=== PATIENT | male | born 1995 | race Hispanic/Latino ===

== ENCOUNTER 2018-04-18 15:08 | Emergency (ER) | payer SELFPAY ==
[2018-04-18] MEDS ORDERED: NA CHLORIDE 0.9% 1,000 ML ONE ×3 (15:42→19:41)
[2018-04-18] MEDS ORDERED: ONDANSETRON 4 MG/2 ML VIAL ONE ×2 (15:42→19:41)
[2018-04-18] MEDS ORDERED: FAMOTIDINE 20 MG/2 ML VIAL IV ONE (15:43)
[2018-04-18 15:51] LABS: Absolute Lymphocytes (CBC) 0.8 K/uL (0.7-4.9); Absolute Monocytes 0.8 K/uL (0.1-1.3); Absolute Neutrophil 11.3 K/uL (1.8-8.0); Basophils % 0.3 % (0-1.3); Eosinophils % 0.1 % (0-4.4); Hematocrit 48.7 % (39.6-49.0); Lymphocytes % 6.3 % (15.3-44.8); MCH 29.2 pg (27.0-35.0); MCV 88.4 fL (80-100); Monocytes % 6.4 % (3.3-12.3); RBC Red Blood Cell Count 5.51 M/uL (4.33-5.43)
[2018-04-18 16:08] LABS: Albumin 3.8 g/dL (3.4-5.0); Bilirubin Direct 0.1 mg/dL (0-0.2); Bilirubin Total 0.4 mg/dL (0.2-1.0); Potassium 3.7 mmol/L (3.5-5.1); Protein, Total 8.5 g/dL (6.4-8.2)
[2018-04-18] MEDS ORDERED: PROMETHAZINE 25 MG/ML VIAL ONE (16:23)
[2018-04-18 16:43] LABS: Urine Blood NEGATIVE (NEG); Urine Glucose NEGATIVE (NEG); Urine Protein 1+ (NEG); Urine Specific Gravity >1.030 (1.005-1.030); Urine pH 5.5 (5.0-7.0)
[2018-04-18 16:43] LABS: Urine Amorphous Sediment 4+ /HPF (NONE SEEN); Urine Bacteria <20 /HPF (NONE SEEN); Urine Culture Reflex Order NOT NEEDED; Urine Mucus 2+ /HPF (NONE SEEN); Urine RBC <5 /HPF (NONE SEEN)
--- NOTE | 2018-04-18 20:19 | EDPHYS ---
Physician Documentation [facility] Name: Manny York Jr Age: 22 yrs Sex: Male : 1995 Arrival Date: 04/18/2018 Time: 15:13 Bed 27 Private MD: None, None ED Physician Daniel Sloan HPI: 04/18 15:38 This 22 yrs old Male presents to ER via Ambulatory with complaints of cp Nausea/Vomiting/Diarrhea. 15:38 The patient presents to the emergency department with nausea, with "dry heaves", cp vomiting, that is continuous, diarrhea, that is continuous, abdominal pain, of the abdomen diffusely. 15:38 Onset: The symptoms/episode began/occurred this morning. Possible causes: bad food cp exposure. Associated signs and symptoms: Pertinent negatives: constipation, fever, GI bleeding. Severity of symptoms: in the emergency department the symptoms are unchanged despite home interventions. Patient reports multiple family members with similar symptoms. Historical: - Allergies: 15:34 No Known Allergies; lk1 - PMHx: 15:34 None; lk1 - PSHx: 15:34 left arm; lk1 - Immunization history:: Adult Immunizations up to date. - Social history:: Smoking status: Patient/guardian denies using tobacco. - Ebola Screening: : Patient negative for fever greater than or equal to 101.5 degrees Fahrenheit, and additional compatible Ebola Virus Disease symptoms Patient denies exposure to infectious person Patient denies travel to an Ebola-affected area in the 21 days before illness onset No symptoms or risks identified at this time. ROS: 15:45 Constitutional: Negative for body aches, chills, fever, poor PO intake. cp 15:45 Eyes: Negative for injury, pain, redness, and discharge. cp 15:45 ENT: Negative for drainage from ear(s), ear pain, sore throat, difficulty swallowing, difficulty handling secretions. 15:45 Cardiovascular: Negative for chest pain. 15:45 Respiratory: Negative for cough, shortness of breath, wheezing. 15:45 Abdomen/GI: Positive for nausea, vomiting, and diarrhea, Negative for hematemesis, black/tarry stool, rectal bleeding. 15:45 Back: Negative for pain at rest, pain with movement, radiated pain. 15:45 : Negative for urinary symptoms. 15:45 Skin: Negative for cellulitis, rash. 15:45 Neuro: Negative for altered mental status, dizziness, headache, weakness. 15:45 All other systems are negative. Exam: 15:49 Constitutional: The patient appears in no acute distress, alert, awake, non-toxic, well cp developed, well nourished. 15:49 Head/Face: Normocephalic, atraumatic. cp 15:49 Eyes: Periorbital structures: appear normal, Conjunctiva: normal, no exudate, no injection, Sclera: no appreciated abnormality, Lids and lashes: appear normal, bilaterally. 15:49 ENT: External ear(s): are unremarkable, Nose: is normal, Mouth: Lips: moist, Oral mucosa: moist, Posterior pharynx: is normal, airway is patent, no erythema, no exudate. 15:49 Neck: ROM/movement: is normal, is supple, without pain, no range of motions limitations, no meningismus, no nuchal rigidity. 15:49 Chest/axilla: Inspection: normal, Palpation: is normal, no crepitus, no tenderness. 15:49 Cardiovascular: Rate: tachycardic, Rhythm: regular. 15:49 Respiratory: the patient does not display signs of respiratory distress, Respirations: normal, no use of accessory muscles, no retractions, no splinting, no tachypnea, labored breathing, is not present, Breath sounds: are clear throughout, no decreased breath sounds, no stridor, no wheezing. 15:49 Abdomen/GI: Inspection: obese Bowel sounds: active, all quadrants, Palpation: soft, in all quadrants, mild abdominal tenderness, in the epigastric area, rebound tenderness, is not appreciated, voluntary guarding, is not appreciated, involuntary guarding, is not appreciated. 15:49 Back: pain, is absent, ROM is normal. 15:49 Skin: cellulitis, is not appreciated, no rash present. Vital Signs: 15:34 BP 137 / 95; Pulse 138; Resp 18; Temp 98.2(TE); Pulse Ox 95% on R/A; Weight 113.4 kg lk1 (R); Height 5 ft. 6 in. (167.64 cm) (R); Pain 10/10; 17:17 BP 140 / 94; Pulse 116; Resp 18; Pulse Ox 99% on R/A; mb3 20:58 BP 118 / 84; Pulse 64; Resp 16; Pulse Ox 100% on R/A; mb3 15:34 Body Mass Index 40.35 (113.40 kg, 167.64 cm) lk1 MDM: 15:32 Patient medically screened. cp 20:17 Data reviewed: vital signs, nurses notes, lab test result(s). cp 20:17 Counseling: I had a detailed discussion with the patient and/or guardian regarding: the cp historical points, exam findings, and any diagnostic results supporting the discharge/admit diagnosis, lab results, to return to the emergency department if symptoms worsen or persist or if there are any questions or concerns that arise at home. Special discussion: Based on the patient's Hx, exam, and Dx evaluation, there is no indication for emergent surgery or inpatient Tx. It is understood by the patient/guardian that if the Sx's persist or worsen they need to return immediately for re-evaluation. 04/18 15:38 Order name: Amylase, Serum; Complete Time: 16:21 cp 04/18 15:38 Order name: Basic Metabolic Panel; Complete Time: 16:21 cp 04/18 16:21 Interpretation: Normal except: GLUC 123; GFR 74. cp 04/18 15:38 Order name: CBC with Diff; Complete Time: 16:21 cp 04/18 16:21 Interpretation: Normal except: WBC 13.0; RBC 5.51; NICK% 86.9; LYM% 6.3; NEUT A 11.3. cp 04/18 15:38 Order name: Creatinine for Radiology; Complete Time: 16:21 cp 04/18 15:38 Order name: Hepatic Function; Complete Time: 16:21 cp 04/18 16:21 Interpretation: Normal except: TP 8.5; GLOB 4.7; A/G 0.8. cp 04/18 15:38 Order name: Lipase; Complete Time: 16:21 cp 04/18 15:38 Order name: Urine Microscopic Only; Complete Time: 16:50 cp 04/18 16:50 Interpretation: Normal except: AMORPH 4+. cp 04/18 16:31 Order name: Urine Dipstick--Ancillary (enter results); Complete Time: 16:50 ag 04/18 16:50 Interpretation: Normal except: USPGR >1.030; UPROT 1+. cp 06/28 15:38 Order name: IV Saline Lock; Complete Time: 15:50 cp 04/18 15:38 Order name: Labs collected and sent; Complete Time: 15:50 cp 04/18 15:38 Order name: Urine Dipstick-Ancillary (obtain specimen); Complete Time: 16:26 cp 04/18 17:34 Order name: PO challenge; Complete Time: 19:21 cp Administered Medications: 15:55 Drug: NS 0.9% 1000 ml Route: IV; Rate: 1 bolus; Site: right antecubital; mb3 21:01 Follow up: Response: No adverse reaction; IV Status: Completed infusion; IV Intake: mb3 1000ml 15:55 Drug: Zofran 4 mg Route: IVP; Site: right antecubital; mb3 21:01 Follow up: Response: No adverse reaction mb3 15:55 Drug: Pepcid 20 mg Route: IVP; Site: right antecubital; mb3 21:02 Follow up: Response: No adverse reaction mb3 16:20 Drug: Phenergan 25 mg Route: IVP; Site: right antecubital; mb3 21:02 Follow up: Response: No adverse reaction mb3 16:59 Drug: NS 0.9% 1000 ml Route: IV; Rate: 1 bolus; Site: right antecubital; mb3 21:02 Follow up: Response: No adverse reaction; IV Status: Completed infusion; IV Intake: mb3 1000ml 19:40 Drug: NS 0.9% 1000 ml Route: IV; Rate: 125 ml/hr; Site: right antecubital; mb3 21:03 Follow up: Response: No adverse reaction; IV Status: Completed infusion; IV Intake: mb3 150ml 19:40 Drug: Zofran 4 mg Route: IVP; Site: right antecubital; mb3 21:03 Follow up: Response: No adverse reaction mb3 Disposition: 04/18/18 20:19 Discharged to Home. Impression: Nausea and vomiting, Diarrhea, unspecified. - Condition is Stable. - Discharge Instructions: Food Choices to Help Relieve Diarrhea, Adult, Diarrhea, Clear Liquid Diet, Nausea and Vomiting. - Prescriptions for Bentyl 20 mg Oral Tablet - take 1 tablet by ORAL route every 6 hours As needed; 30 tablet. Pepcid 20 mg Oral Tablet - take 1 tablet by ORAL route every 12 hours for 10 days; 20 tablet. promethazine 25 mg Oral Tablet - take 1 tablet by ORAL route every 6 hours As needed; 20 tablet. - Medication Reconciliation Form, Thank You Letter, Antibiotic Education, Prescription Opioid Use form. - Follow up: Private Physician; When: 1 - 2 days; Reason: Recheck today's complaints. - Problem is new. - Symptoms have improved. Addendum: 04/25/2018 11:29 Co-signature as Attending Physician, Daniel Sloan MD I agree with the assessment and k plan of care. Signatures: Dispatcher [employer] EDMA Daniel Sloan MD MD kdr Quinn Toure PA PA cp Lida Velasquez RN RN lk1 Delio Otoole RN RN mb3 Corrections: (The following items were deleted from the chart) 04/18 21:04 20:19 04/18/2018 20:19 Discharged to Home. Impression: Nausea and vomiting; Diarrhea, mb3 unspecified. Condition is Stable. Forms are Medication Reconciliation Form, Thank You Letter, Antibiotic Education, Prescription Opioid Use. Follow up: Private Physician; When: 1 - 2 days; Reason: Recheck today's complaints. Problem is new. Symptoms have improved. cp 04/19 06:16 04/17 15:48 Constitutional: The patient appears in no acute distress, alert, awake, cp non-toxic, well developed, well nourished, cp 04/19 06:04/17 15:48 Head/Face: Normocephalic, atraumatic. cp cp 04/19 06:04/17 15:48 Eyes: Periorbital structures: appear normal, Pupils: equal, round, and cp reactive to light and accomodation, Extraocular movements: intact throughout, Conjunctiva: normal, no exudate, no injection, Sclera: no appreciated abnormality, Lids and lashes: appear normal, bilaterally, cp 04/19 06:04/17 15:48 ENT: External ear(s): are unremarkable, Nose: is normal, Mouth: Lips: cp moist, Oral mucosa: pink and intact, moist, Posterior pharynx: is normal, airway is patent, no erythema, no exudate, cp 04/19 06:04/17 15:48 Neck: ROM/movement: is normal, is supple, without pain, no range of motions cp limitations, no meningismus, no nuchal rigidity, cp 04/19 06:04/17 15:48 Chest/axilla: Inspection: normal, Palpation: is normal, no crepitus, no cp tenderness, cp 04/19 06:04/17 15:48 Cardiovascular: Rate: tachycardic, Rhythm: regular, Edema: is not cp appreciated, JVD: is not appreciated, cp 04/19 06:04/17 15:48 Respiratory: the patient does not display signs of respiratory distress, cp Respirations: normal, no use of accessory muscles, no retractions, no splinting, no tachypnea, Breath sounds: are clear throughout, no decreased breath sounds, no stridor, no wheezing, cp 04/19 06:04/17 15:48 Abdomen/GI: Inspection: obese Bowel sounds: active, all quadrants, cp Palpation: soft, in all quadrants, mild abdominal tenderness, in all quadrants, rebound tenderness, is not appreciated, voluntary guarding, is not appreciated, involuntary guarding, is not appreciated, cp 04/19 06:04/17 15:48 Skin: cellulitis, is not appreciated, no rash present. cp cp 04/19 06:04/17 15:48 Back: pain, is absent, ROM is normal, cp cp 04/19 06:04/17 15:48 Neuro: Orientation: to person, place \\T\\ time. Mentation: is normal, cp Cerebellar function: is grossly normal, Motor: moves all fours, strength is normal, Sensation: no obvious gross deficits, cp
--- NOTE | 2018-04-18 20:19 | ER ---
Nurse's Notes [facility] Name: Manny York Jr Age: 22 yrs Sex: Male : 1995 Arrival Date: 04/18/2018 Time: 15:13 Bed 27 Private MD: None, None Diagnosis: Nausea and vomiting;Diarrhea, unspecified Presentation: 04/18 15:33 Presenting complaint: Patient states: "My whole family was sick yesterday with vomiting lk1 and diarrhea. Today I have it.". Transition of care: patient was not received from another setting of care. Onset of symptoms was April 18, 2018 at 09:00. Risk Assessment: Do you want to hurt yourself or someone else? Patient reports no desire to harm self or others. Initial Sepsis Screen: Does the patient meet any 2 criteria? HR > 90 bpm. Does the patient have a suspected source of infection? No. Patient's initial sepsis screen is negative. Care prior to arrival: None. 15:33 Method Of Arrival: Ambulatory lk1 15:33 Acuity: JARON 3 lk1 Historical: - Allergies: 15:34 No Known Allergies; lk1 - PMHx: 15:34 None; lk1 - PSHx: 15:34 left arm; lk1 - Immunization history:: Adult Immunizations up to date. - Social history:: Smoking status: Patient/guardian denies using tobacco. - Ebola Screening: : Patient negative for fever greater than or equal to 101.5 degrees Fahrenheit, and additional compatible Ebola Virus Disease symptoms Patient denies exposure to infectious person Patient denies travel to an Ebola-affected area in the 21 days before illness onset No symptoms or risks identified at this time. Screenin:18 Abuse screen: Denies threats or abuse. Nutritional screening: No deficits noted. mb3 Tuberculosis screening: No symptoms or risk factors identified. Fall Risk None identified. Assessment: 15:38 General: Appears uncomfortable, ill, obese, Behavior is calm, cooperative, appropriate mb3 for age. Pain: Complains of pain in abdomen. Neuro: No deficits noted. Cardiovascular: No deficits noted. Respiratory: No deficits noted. GI: Abdomen is round obese, Pt is actively vomiting bile, Bowel sounds present X 4 quads. hyperactive in right upper quadrant, left upper quadrant, right lower quadrant and left lower quadrant Abd is soft Abdomen is tender to palpation X 4 quads. Reports diarrhea, nausea, vomiting. : No signs and/or symptoms were reported regarding the genitourinary system. Urine is clear. EENT: No deficits noted. No signs and/or symptoms were reported regarding the EENT system. 17:18 Reassessment: Patient and/or family updated on plan of care and expected duration. Pain mb3 level reassessed. Patient is alert, oriented x 3, equal unlabored respirations, skin warm/dry/pink. Patient states symptoms have improved. 20:59 Reassessment: Patient and/or family updated on plan of care and expected duration. Pain mb3 level reassessed. Pt drinking without vomiting. practioner notified. Patient states feeling better. Patient states symptoms have improved. Vital Signs: 15:34 BP 137 / 95; Pulse 138; Resp 18; Temp 98.2(TE); Pulse Ox 95% on R/A; Weight 113.4 kg lk1 (R); Height 5 ft. 6 in. (167.64 cm) (R); Pain 10/10; 17:17 BP 140 / 94; Pulse 116; Resp 18; Pulse Ox 99% on R/A; mb3 20:58 BP 118 / 84; Pulse 64; Resp 16; Pulse Ox 100% on R/A; mb3 15:34 Body Mass Index 40.35 (113.40 kg, 167.64 cm) lk1 ED Course: 15:13 Patient arrived in ED. mr 15:13 None, None is Private Physician. mr 15:30 Delio Otoole, RASHMI is Primary Nurse. mb3 15:31 Quinn Toure PA is PHCP. cp 15:31 Daniel Sloan MD is Attending Physician. cp 15:33 Triage completed. lk1 15:34 Arm band placed on right wrist. lk1 15:38 Inserted saline lock: 20 gauge in right antecubital area, using aseptic technique. mb3 Blood collected. 17:19 Patient has correct armband on for positive identification. Bed in low position. Call mb3 light in reach. Side rails up X 1. Pulse ox on. NIBP on. 20:59 No provider procedures requiring assistance completed. IV discontinued, intact, mb3 bleeding controlled, No redness/swelling at site. Pressure dressing applied. Administered Medications: 15:55 Drug: NS 0.9% 1000 ml Route: IV; Rate: 1 bolus; Site: right antecubital; mb3 21:01 Follow up: Response: No adverse reaction; IV Status: Completed infusion; IV Intake: mb3 1000ml 15:55 Drug: Zofran 4 mg Route: IVP; Site: right antecubital; mb3 21:01 Follow up: Response: No adverse reaction mb3 15:55 Drug: Pepcid 20 mg Route: IVP; Site: right antecubital; mb3 21:02 Follow up: Response: No adverse reaction mb3 16:20 Drug: Phenergan 25 mg Route: IVP; Site: right antecubital; mb3 21:02 Follow up: Response: No adverse reaction mb3 16:59 Drug: NS 0.9% 1000 ml Route: IV; Rate: 1 bolus; Site: right antecubital; mb3 21:02 Follow up: Response: No adverse reaction; IV Status: Completed infusion; IV Intake: mb3 1000ml 19:40 Drug: NS 0.9% 1000 ml Route: IV; Rate: 125 ml/hr; Site: right antecubital; mb3 21:03 Follow up: Response: No adverse reaction; IV Status: Completed infusion; IV Intake: mb3 150ml 19:40 Drug: Zofran 4 mg Route: IVP; Site: right antecubital; mb3 21:03 Follow up: Response: No adverse reaction mb3 Intake: 21:01 IV: 1000ml; Total: 1000ml. mb3 21:02 IV: 1000ml; Total: 2000ml. mb3 21:03 IV: 150ml; Total: 2150ml. mb3 Outcome: 20:19 Discharge ordered by . heaven 21:00 Discharged to home ambulatory, with family. mb3 21:00 Condition: stable 21:00 Discharge instructions given to patient, family, Instructed on discharge instructions, follow up and referral plans. no drinking with medication, no driving heavy equipment, medication usage, Demonstrated understanding of instructions, follow-up care, medications, Prescriptions given X 3. 21:04 Patient left the ED. mb3 Signatures: Brisa Tomas mr Quinn Toure PA PA cp Kluge, Leah RN RN lk1 Delio Otoole RN RN mb3
[2018-04-18 21:07] VITALS: TEMP 98.2
[2018-04-18 21:09] VITALS: BP 118/84; O2SAT 100
== END 2018-04-18 21:04 | disposition home or self-care (01) ==
LOC: ER 15:08
DX: R11.2 Nausea with vomiting, unspecified (principal); R19.7 Diarrhea, unspecified
CPT/HCPCS: 36415; 80048; 80076; 81003; 81015; 82150; 83690; 85025; 96361; 96374; 96375; 99284; J2405; J2550; J7030

== ENCOUNTER 2018-11-05 19:34 | Emergency (ER) | payer SELFPAY ==
--- NOTE | 2018-11-05 21:02 | ER ---
Nurse's Notes [facility] Name: Manny York Jr Age: 23 yrs Sex: Male : 1995 Arrival Date: 11/05/2018 Time: 19:37 Bed 25 Private MD: Diagnosis: Hemorrhoids and perianal venous thrombosis Presentation: 11/05 19:51 Presenting complaint: Patient states: Inflammation and redness to rectum that started 2 aj months ago but got worse today. Denies bleeding. Transition of care: patient was not received from another setting of care. Onset of symptoms was August 2018. Risk Assessment: Do you want to hurt yourself or someone else? Patient reports no desire to harm self or others. Initial Sepsis Screen: Does the patient meet any 2 criteria? No. Patient's initial sepsis screen is negative. Does the patient have a suspected source of infection? No. Patient's initial sepsis screen is negative. Care prior to arrival: None. 19:51 Method Of Arrival: Ambulatory 19:51 Acuity: JARON 4 aj Triage Assessment: 19:53 General: Appears in no apparent distress. comfortable, Behavior is calm, cooperative, aj appropriate for age. Pain: Complains of pain in anus. Neuro: Level of Consciousness is awake, alert, obeys commands, Oriented to person, place, time, situation, Appropriate for age. Respiratory: Airway is patent Respiratory effort is even, unlabored, Respiratory pattern is regular, symmetrical. GI: Reports pain at rectum. Derm: Skin is intact, is healthy with good turgor, Skin is pink, warm \T\ dry. normal. Historical: - Allergies: 19:53 Hydrocodone-Acetaminophen; aj - Home Meds: 19:53 None [Active]; aj - PMHx: 19:53 None; aj - PSHx: 19:53 Ear Tubes; Left Arm; aj - Immunization history:: Adult Immunizations up to date. - Social history:: Smoking status: Patient/guardian denies using tobacco. - Ebola Screening: : Patient negative for fever greater than or equal to 101.5 degrees Fahrenheit, and additional compatible Ebola Virus Disease symptoms Patient denies exposure to infectious person Patient denies travel to an Ebola-affected area in the 21 days before illness onset No symptoms or risks identified at this time. Screenin:14 Abuse screen: Denies threats or abuse. Denies injuries from another. Nutritional mg2 screening: No deficits noted. Tuberculosis screening: No symptoms or risk factors identified. Fall Risk None identified. Assessment: 20:28 General: Appears in no apparent distress. comfortable, Behavior is calm, cooperative. mg2 Pain: Complains of pain in anus Pain does not radiate. Pain currently is 5 out of 10 on a pain scale. Quality of pain is described as aching, Pain began gradually, 2 months Is intermittent. Neuro: Level of Consciousness is awake, alert, obeys commands, Oriented to person, place, time, situation. Cardiovascular: Capillary refill < 3 seconds Patient's skin is warm and dry. Respiratory: Airway is patent Respiratory effort is even, unlabored, Respiratory pattern is regular, symmetrical. GI: Reports rectal pain. : No signs and/or symptoms were reported regarding the genitourinary system. EENT: No signs and/or symptoms were reported regarding the EENT system. Derm: Skin is intact, is healthy with good turgor, Skin is pink, warm \T\ dry. normal. Musculoskeletal: No signs and/or symptoms reported regarding the musculoskeletal system. Vital Signs: 19:53 BP 125 / 84; Pulse 90; Resp 16; Temp 98.2; Pulse Ox 96% on R/A; Weight 112.49 kg; aj Height 5 ft. 6 in. (167.64 cm); 21:23 BP 122 / 78; Pulse 89; Resp 18; Pulse Ox 100% on R/A; Pain 2/10; mg2 19:53 Body Mass Index 40.03 (112.49 kg, 167.64 cm) aj ED Course: 19:37 Patient arrived in ED. al2 19:52 Triage completed. aj 19:53 Arm band placed on left wrist. Patient placed in an exam room. aj 20:14 Robbi Hernandez, RASHMI is Primary Nurse. mg2 20:15 Patient has correct armband on for positive identification. Door closed. mg2 20:28 Mohsen Mcdonald MD is Attending Physician. gs 21:15 Josué Reza MD is Referral Physician. gs 21:23 No provider procedures requiring assistance completed. Patient did not have IV access mg2 during this emergency room visit. Administered Medications: 21:15 Drug: Motrin 600 mg Route: PO; mg2 21:15 Follow up: Response: No adverse reaction; Medication administered at discharge. mg2 21:15 Drug: Viscous Lidocaine Liquid (4 %) 5 ml Route: Mucous Membrane; mg2 21:15 Follow up: Response: No adverse reaction; Medication administered at discharge. mg2 Outcome: 21:01 Discharge ordered by . lavon 21:23 Discharged to home ambulatory. mg2 21:23 Condition: stable 21:23 Discharge instructions given to patient, Instructed on discharge instructions, follow up and referral plans. medication usage, Demonstrated understanding of instructions, follow-up care, medications, Prescriptions given X 2. 21:24 Patient left the ED. mg2 Signatures: Elizabeth Berger, RN RN Mohsen Kim MD MD gs Love, Bree callaway2 Robbi Hernandez RN RN mg2
--- NOTE | 2018-11-05 21:02 | EDPHYS ---
Physician Documentation [facility] Name: Manny York Jr Age: 23 yrs Sex: Male : 1995 Arrival Date: 11/05/2018 Time: 19:37 Bed 25 Private MD: ED Physician Mohsen Mcdonald HPI: 11/05 20:47 This 23 yrs old Male presents to ER via Ambulatory with complaints of Rectal gs Pain. 20:47 The patient presents to the emergency department with pain in the rectal area, that is gs moderate. Onset: The symptoms/episode began/occurred 1 week(s) ago, and became worse. Context: the patient has a known history of hemorrhoids. Modifying factors: The symptoms are aggravated by bowel movement, sitting position. Associate signs and symptoms: Pertinent negatives: diarrhea, dysuria, fever, lower GI bleeding. The patient has experienced similar episodes in the past, a few times. Historical: - Allergies: 19:53 Hydrocodone-Acetaminophen; aj - Home Meds: 19:53 None [Active]; aj - PMHx: 19:53 None; aj - PSHx: 19:53 Ear Tubes; Left Arm; aj - Immunization history:: Adult Immunizations up to date. - Social history:: Smoking status: Patient/guardian denies using tobacco. - Ebola Screening: : Patient negative for fever greater than or equal to 101.5 degrees Fahrenheit, and additional compatible Ebola Virus Disease symptoms Patient denies exposure to infectious person Patient denies travel to an Ebola-affected area in the 21 days before illness onset No symptoms or risks identified at this time. ROS: 20:47 All other systems are negative. gs Exam: 20:47 Cardiovascular: Regular rate and rhythm with a normal S1 and S2. No gallops, murmurs, gs or rubs. Normal PMI, no JVD. No pulse deficits. Respiratory: Lungs have equal breath sounds bilaterally, clear to auscultation and percussion. No rales, rhonchi or wheezes noted. No increased work of breathing, no retractions or nasal flaring. Abdomen/GI: Soft, non-tender, with normal bowel sounds. No distension or tympany. No guarding or rebound. No evidence of tenderness throughout. 20:47 Skin: Warm, dry with normal turgor. Normal color with no rashes, no lesions, and no evidence of cellulitis. MS/ Extremity: Pulses equal, no cyanosis. Neurovascular intact. Full, normal range of motion. Neuro: Awake and alert, GCS 15, oriented to person, place, time, and situation. Cranial nerves II-XII grossly intact. Motor strength 5/5 in all extremities. Sensory grossly intact. Cerebellar exam normal. Normal gait. 20:47 Constitutional: The patient appears alert, awake, uncomfortable. 20:47 Abdomen/GI: Rectal exam: hemorrhoid(s), external, with inflammation, with pain. Vital Signs: 19:53 BP 125 / 84; Pulse 90; Resp 16; Temp 98.2; Pulse Ox 96% on R/A; Weight 112.49 kg; aj Height 5 ft. 6 in. (167.64 cm); 21:23 BP 122 / 78; Pulse 89; Resp 18; Pulse Ox 100% on R/A; Pain 2/10; mg2 19:53 Body Mass Index 40.03 (112.49 kg, 167.64 cm) aj MDM: 20:46 Patient medically screened. gs 20:47 Differential diagnosis: hemorrhoids. Data reviewed: vital signs, nurses notes. Response gs to treatment: the patient's symptoms have mildly improved after treatment. Administered Medications: 21:15 Drug: Motrin 600 mg Route: PO; mg2 21:15 Follow up: Response: No adverse reaction; Medication administered at discharge. mg2 21:15 Drug: Viscous Lidocaine Liquid (4 %) 5 ml Route: Mucous Membrane; mg2 21:15 Follow up: Response: No adverse reaction; Medication administered at discharge. mg2 Disposition: 11/05/18 21:01 Discharged to Home. Impression: Hemorrhoids and perianal venous thrombosis. - Condition is Stable. - Discharge Instructions: Hemorrhoids, [id number]. - Prescriptions for Dea- Edilberto Kit 2-2 % Rectal kit - apply 1 application by TOPICAL route 2 times per day; 14 unit. Colace 100 mg Oral Tablet - take 1 tablet by ORAL route every 12 hours; 14 tablet. - Medication Reconciliation Form, Thank You Letter, Antibiotic Education, Prescription Opioid Use form. - Follow up: Josué Reza MD; When: 2 - 3 days; Reason: Re-evaluation by your physician. Signatures: Elizabeth Berger RN RN aj Mcdonald, Mohsen, MD MD gs Gardose, Robbi, RN RN mg2 Corrections: (The following items were deleted from the chart) 21:15 21:01 11/05/2018 21:01 Discharged to Home. Impression: Hemorrhoids and perianal venous gs thrombosis. Condition is Stable. Forms are Medication Reconciliation Form, Thank You Letter, Antibiotic Education, Prescription Opioid Use. Follow up: Private Physician; When: 2 - 3 days; Reason: Re-evaluation by your physician. 21:24 21:15 11/05/2018 21:01 Discharged to Home. Impression: Hemorrhoids and perianal venous mg2 thrombosis. Condition is Stable. Discharge Instructions: Hemorrhoids, [id number]. Prescriptions for Dea-Edilberto Kit 2-2 % Rectal kit - apply 1 application by TOPICAL route 2 times per day; 14 unit, Colace 100 mg Oral Tablet - take 1 tablet by ORAL route every 12 hours; 14 tablet. and Forms are Medication Reconciliation Form, Thank You Letter, Antibiotic Education, Prescription Opioid Use. Follow up: Dr. Josué Reza; When: 2 - 3 days; Reason: Re-evaluation by your physician.
[2018-11-05] MEDS ORDERED: LIDOCAINE VISCOUS 2% SOLN 15 ML UDC ONE (21:27)
[2018-11-05] MEDS ORDERED: IBUPROFEN 200 MG TAB PO ONE (21:27)
[2018-11-05 21:30] VITALS: TEMP 98.2
[2018-11-05 21:32] VITALS: BP 122/78; O2SAT 100
== END 2018-11-05 21:24 | disposition home or self-care (01) ==
LOC: ER 19:34
DX: K64.5 Perianal venous thrombosis (principal)
CPT/HCPCS: 99283